=== PATIENT | male | born 1945 | race Asian ===

== ENCOUNTER 2020-01-20 17:37 | Inpatient (IN) | payer MEDICARE ==
[~2020-01-20] VITALS: Ht 175.3 cm; Wt 72.3 kg
[2020-01-20] MEDS ORDERED: LOSA50TA39 PO (17:57)
[2020-01-20] MEDS ORDERED: ASPI-1169 PO (17:57)
[2020-01-20] MEDS ORDERED: PARO30TA4 PO (17:57)
[2020-01-20] MEDS ORDERED: SENN-261 PO (17:57)
[2020-01-20] MEDS ORDERED: LORA-259 PO (17:57)
[2020-01-20] MEDS ORDERED: LORA10TA7 PO (17:57)
[2020-01-20] MEDS ORDERED: GABA-534 PO (17:57)
[2020-01-20] MEDS ORDERED: AMLO5TAB9 PO (17:57)
[2020-01-20] MEDS ORDERED: METF-834 PO (17:57)
[2020-01-20] MEDS ORDERED: RANI150T8 PO (17:57)
[2020-01-20] MEDS ORDERED: DONE5TAB34 PO (17:57)
[2020-01-20] MEDS ORDERED: BACL20TA PO (17:57)
[2020-01-20] MEDS ORDERED: LACT1CAP71 PO (17:57)
[2020-01-20] MEDS ORDERED: CYAN-51 PO (17:57)
[2020-01-20] MEDS ORDERED: MULT-1168 PO (17:57)
[2020-01-20] MEDS ORDERED: OMEG-167 PO (17:57)
[2020-01-20] MEDS ORDERED: ACET-868 PO (17:57)
[2020-01-20] MEDS ORDERED: PSYL3.4P6 PO (17:57)
--- NOTE | 2020-01-20 18:01 | NUR ---
PT BIB RA C/O SYNCOPAL EPISODE AT [facility]. PT IS AAOX1, NOT IN RESPIRATORY DISTRESS, HOOKED TO BAGGING MACHINE OPERATOR, KEPT RESTED AND COMFORTABLE, WILL CONTINUE TO MONITOR.
--- NOTE | 2020-01-20 18:20 | NUR ---
SEEN AND EXAMINED BY MIGUEL SHERWOOD
[2020-01-20] MEDS ORDERED: IV NS 0.9% 1,000 ML BAG IV ONE (18:30)
--- NOTE | 2020-01-20 19:05 | NUR ---
FIBER ANALYST AT BEDSIDE FOR XRAY.
--- NOTE | 2020-01-20 19:12 | NUR ---
REPORT GIVEN TO NOREEN EDWARDS FOR CUCA.
[2020-01-20 19:13] LABS: BASOPHILS % (AUTO) 0.6 % (0.0-2.0); EOSINOPHILS % (AUTO) 2.1 % (0.0-6.0); HEMATOCRIT 36 % (39-51); HEMOGLOBIN 12.5 g/dL (13.5-17.5); LYMPHOCYTES # (AUTO) 0.8 /CMM (0.8-4.8); LYMPHOCYTES % (AUTO) 11.1 % (20.0-44.0); MEAN CORPUSCULAR HGB CONC 35 g/dl (31.0-36.0); MEAN CORPUSCULAR VOLUME 93 fL (80-96); MONOCYTES # (AUTO) 0.5 /CMM (0.1-1.30); MONOCYTES % (AUTO) 6.9 % (2.0-12.0); NEUTROPHILS # (AUTO) 5.7 /CMM (1.8-8.9); NEUTROPHILS % (AUTO) 79.3 % (43.0-81.0); PLATELET COUNT (AUTO) 180 /CMM (150-450); RED BLOOD CELL COUNT(AUTO) 3.89 MIL/uL (4.5-6.0); WHITE BLOOD COUNT (AUTO) 7.2 K/uL (4.3-11.0)
[2020-01-20 19:24] LABS: CALCIUM, SERUM 8.3 mg/dL (8.5-10.1); CARBON DIOXIDE 25 mmol/L (21-32); CHLORIDE 105 mmol/L (98-107); CREATININE 1.2 mg/dL (0.6-1.3); GLUCOSE 110 mg/dL (74-106); POTASSIUM 4.5 mmol/L (3.5-5.1); SODIUM SERUM 139 mmol/L (136-145); UREA NITROGEN, BLOOD 17 mg/dL (7-18)
[2020-01-20 19:30] LABS: ALANINE AMINOTRANSFERASE 20 U/L (12-78); ALBUMIN 3.4 g/dL (3.4-5.0); ALKALINE PHOSPHATASE 74 U/L (46-116); ASPARTATE AMINOTRANSFERASE 19 U/L (15-37); BILIRUBIN,TOTAL 0.3 mg/dL (0.2-1.0); TOTAL PROTEIN, SERUM 6.5 g/dL (6.4-8.2)
--- NOTE | 2020-01-20 19:33 | NUR ---
Note bhavik in EDM - 01/20/20 at 1933 by HERMAN IV removed. Catheter intact and site benign. Pressure and 4x4 applied to site. No bleeding noted. Patient discharged to home in stable condition. Written and verbal after care instructions given. Patient verbalizes understanding of instruction.
[2020-01-20 19:59] LABS: APPEARANCE,URINE Clear (CLEAR); BILIRUBIN,URINE Negative (NEGATIVE); BLOOD, URINE Small Ery/uL (NEGATIVE); COLOR,URINE Yellow (YELLOW); KETONES,URINE Trace (NEGATIVE); LEUKOCYTE ESTERASE ,URINE Trace (NEGATIVE); NITRITE, URINE Negative (NEGATIVE); PROTEIN,URINE 100 mg/dl (NEGATIVE); UGLUCOSE Negative (NEGATIVE); UROBILINOGEN,URINE 0.2 EU/dL (0.2)
[2020-01-20 20:10] LABS: BACTERIA,URINE 1+ /HPF (None Seen); RBC,URINE 21-50 /HPF (0-2); SQUAMOUS EPITHELIAL CELL,UR Moderate /HPF (None Seen)
[2020-01-20 20:11] LABS: MUCUS,URINE Moderate /LPF (None Seen); URINE AMORPHOUS PHOSPHATES Moderate /HPF (None Seen)
[2020-01-20] MEDS ORDERED: CEFTRIAXONE 1GM BAG (ER ONLY) 50 ML IV ONE (20:27)
[2020-01-20] MEDS ORDERED: CEFTRIAXONE 1 G in IV D5W 50 ML IV ONE (20:30)
--- NOTE | 2020-01-20 20:52 | NUR ---
flu swab sample taken and sent to lab
--- NOTE | 2020-01-20 21:30 | NUR ---
[facility]
--- NOTE | 2020-01-20 21:31 | NUR ---
ACCEPTED BY DR LUJAN
--- NOTE | 2020-01-20 21:39 | NUR ---
TRIED CALLING FOR REPORT, NO ANSWER
--- NOTE | 2020-01-20 22:08 | NUR ---
TRIED CALLING FOR REPORT, NO ANSWER.
--- NOTE | 2020-01-20 22:26 | NUR ---
REPORT GIVEN TO SIDDHARTH SORTO FOR [facility].
[2020-01-20 23:00] VITALS: BP 121/75
--- NOTE | 2020-01-20 23:00 | NUR ---
RN OPEN NOTES RECEIVED PATIENT FROM ER VIA GURERIN. A/O X1. NO SIGNS OF DISTRESS OR DISCOMFORT. BREATHING EVEN AND UNLABORED. IV ACCESS IN R HAND, PATENT AND INTACT, NO SIGNS OF REDNESS OR INFILTRATION. ORIENTED PATIENT TO UNIT AND ROOM. BED IN LOW LOCKED POSITION WITH SIDE RAILS X2. CALL LIGHT WITHIN REACH. WILL CONTINUE TO MONITOR
[2020-01-21] MEDS ORDERED: ONDANSETRON HCL/PF 4 MG/2 ML VIAL IV PRN
[2020-01-21] MEDS ORDERED: ACETAMINOPHEN 325 MG TABLET PO PRN
[2020-01-21] MEDS ORDERED: CLONIDINE HCL 0.1 MG TABLET PO PRN
[2020-01-21] MEDS: IV D5/ 0.9% NACL 1,000 ML IV PRN (00:43)
[2020-01-21 06:29] LABS: BASOPHILS % (AUTO) 0.7 % (0.0-2.0); EOSINOPHILS % (AUTO) 3.3 % (0.0-6.0); HEMATOCRIT 36 % (39-51); HEMOGLOBIN 12.7 g/dL (13.5-17.5); LYMPHOCYTES # (AUTO) 1.6 /CMM (0.8-4.8); LYMPHOCYTES % (AUTO) 27.4 % (20.0-44.0); MEAN CORPUSCULAR HGB CONC 35 g/dl (31.0-36.0); MEAN CORPUSCULAR VOLUME 92 fL (80-96); MONOCYTES # (AUTO) 0.6 /CMM (0.1-1.30); MONOCYTES % (AUTO) 9.8 % (2.0-12.0); NEUTROPHILS # (AUTO) 3.4 /CMM (1.8-8.9); NEUTROPHILS % (AUTO) 58.8 % (43.0-81.0); PLATELET COUNT (AUTO) 178 /CMM (150-450); RED BLOOD CELL COUNT(AUTO) 3.96 MIL/uL (4.5-6.0); WHITE BLOOD COUNT (AUTO) 5.7 K/uL (4.3-11.0)
[2020-01-21 06:47] LABS: CALCIUM, SERUM 8.5 mg/dL (8.5-10.1); CREATININE 1.1 mg/dL (0.6-1.3); MAGNESIUM 1.9 mg/dL (1.8-2.4)
--- NOTE | 2020-01-21 07:31 | NUR ---
RN CLOSING NOTES PATIENT AWAKE IN BED. A/O X1. NO SIGNS OF DISTRESS OR DISCOMFORT. BREATHING EVEN AND UNLABORED. IV ACCESS IN R HAND WITH D5NS INFUSING, PATENT AND INTACT, NO SIGNS OF REDNESS OR INFILTRATION.ALL NEEDS MET. NO SIGNIFICANT CHANGES THROUGH THE NIGHT. PATIENT KEPT CLEAN DRY AND COMFORTABLE. BED IN LOW LOCKED POSITION WITH SIDE RAILS X2. CALL LIGHT WITHIN REACH. ENDORSED TO AM SHIFT FOR CUCA.
--- NOTE | 2020-01-21 07:36 | NUR ---
RN OPENING NOTE PT WAS RECEIVED IN BED AT LOWEST AND LOCKED POSITION WITH SIDE RAIL UPX2, A/O X1 BREATHING EVEN AND UNLABORED ON RA WITH NO S/S OF ANY DISTRESS AT THIS TIME, NOTED TO BE DNR, IV IS PATENT AND INTACT WITH IVF RUNNING, SAFETY PRECAUTIONS IN PLACE, CALL LIGHT IN REACH, WILL MONITOR ACCORDINGLY
[2020-01-21] MEDS: PANTOPRAZOLE 40 MG VIAL IV SCH (07:50)
[2020-01-21 08:00] VITALS: BP 138/75
[2020-01-21] MEDS ORDERED: LORATADINE 10 MG TABLET PO PRN (11:00)
[2020-01-21] MEDS: MULTIVITAMINS,THERAGRAN 1 UDTAB TABLET PO SCH (12:11)
[2020-01-21] MEDS: CYANOCOBALAMIN 500 MCG TABLET PO SCH (12:12)
[2020-01-21] MEDS: BACLOFEN (10 MG) 10 MG TABLET PO SCH ×2 (12:12→17:11)
[2020-01-21] MEDS: METFORMIN XR 500 MG TAB.SR.24H PO SCH (12:13)
[2020-01-21] MEDS: PSYLLIUM SEED 1 PKT PACKET PO SCH (12:13)
[2020-01-21] MEDS: PAROXETINE HCL 20 MG TABLET PO SCH (12:13)
[2020-01-21 16:00] VITALS: BP 169/82
[2020-01-21] MEDS ORDERED: ACETAMINOPHEN 325 MG TABLET PO SCH (17:00)
[2020-01-21] MEDS ORDERED: FATTY ACIDS PO SCH (17:00)
[2020-01-21] MEDS ORDERED: FISH OIL PO SCH (17:00)
[2020-01-21] MEDS ORDERED: OMEGA PO SCH (17:00)
[2020-01-21] MEDS: LORAZEPAM 1 MG TABLET PO SCH (17:11)
[2020-01-21] MEDS ORDERED: SENNOSIDES 8.6 MG TABLET PO SCH (18:00)
[2020-01-21] MEDS ORDERED: DONEPEZIL 5 MG TABLET PO SCH (18:00)
[2020-01-21] MEDS ORDERED: ASPIRIN 81 MG TAB.CHEW PO SCH (18:00)
[2020-01-21] MEDS ORDERED: LOSARTAN POTASSIUM 50 MG TABLET PO SCH (18:00)
--- NOTE | 2020-01-21 18:51 | NUR ---
RN CLOSING NOTE PT IN BED AT LOWEST AND LOCKED POSITION WITH SIDE RAIL UPX2, A/O X1 BREATHING EVEN AND UNLABORED ON RA WITH NO S/S OF ANY DISTRESS AT THIS TIME, IV IS PATENT AND INTACT WITH IVF RUNNING, SAFETY PRECAUTIONS IN PLACE, CALL LIGHT IN REACH, ALL NEEDS ATTENDED TO, WILL ENDORSE TO NIGHT RN FOR CUCA.
--- NOTE | 2020-01-21 19:50 | NUR ---
MS RN NOTE: PATIENT RESTING IN BED, NO ACUTE DISTRESS NOTED. BREATHING EVEN AND UNLABORED, NO SOB NOTED. IV TO RIGHT HAND IN PLACE, INFUSING D5NS 75ML/HR. BED LOCKED AND IN LOWEST POSITION, CALL LIGHT IN REACH. WILL CONTINUE TO MONITOR.
[2020-01-21 20:00] VITALS: BP 111/65
[2020-01-21] MEDS ORDERED: CEFTRIAXONE 2 G in IV D5W 100 ML IV SCH (20:00)
[2020-01-21] MEDS ORDERED: GABAPENTIN 300 MG CAPSULE PO SCH (22:00)
--- NOTE | 2020-01-22 03:30 | NUR ---
MS RN NOTE: PATIENT SLEEPING IN BED, NO ACUTE DISTRESS NOTED. BREATHING EVEN AND UNLABORED, NO SOB NOTED. IV TO RIGHT HAND IN PLACE, INFUSING D5NS 75ML/HR. BED LOCKED AND IN LOWEST POSITION, CALL LIGHT IN REACH. WILL CONTINUE TO MONITOR.
[2020-01-22] MEDS: IV D5/ 0.9% NACL 1,000 ML IV PRN (05:09)
--- NOTE | 2020-01-22 06:30 | NUR ---
MS RN NOTE: PATIENT RESTING IN BED, NO ACUTE DISTRESS NOTED. BREATHING EVEN AND UNLABORED, NO SOB NOTED. IV TO RIGHT HAND IN PLACE, INFUSING D5NS 75ML/HR. BED LOCKED AND IN LOWEST POSITION, CALL LIGHT IN REACH. WILL ENDORSE TO DAY NURSE TO CONTINUE WITH PLAN OF CARE.
--- NOTE | 2020-01-22 07:15 | NUR ---
RN OPENING NOTES PATIENT RESTING IN BED, RESPONSIVE TO VERBAL AND TACTILE STIMULI. NO ACUTE DISTRESS NOTED. BREATHING EVEN AND UNLABORED, NO SOB NOTED. IV TO RIGHT HAND IN PLACE, NO REDNESS, NO INFILTRATION. KEPT PATIENT SAFE AND COMFORTABLE. BED LOCKED AND IN LOWEST POSITION, SEMIFOWLERS, CALL LIGHT IN REACH. WILL CONTINUE TO MONITOR ACCORDINGLY..
[2020-01-22 08:00] VITALS: BP 139/89
[2020-01-22] MEDS: PANTOPRAZOLE 40 MG VIAL IV SCH (08:58)
[2020-01-22] MEDS: PSYLLIUM SEED 1 PKT PACKET PO SCH (08:59)
[2020-01-22] MEDS: METFORMIN XR 500 MG TAB.SR.24H PO SCH (09:00)
[2020-01-22] MEDS: BACLOFEN (10 MG) 10 MG TABLET PO SCH ×2 (09:00→13:21)
[2020-01-22] MEDS: MULTIVITAMINS,THERAGRAN 1 UDTAB TABLET PO SCH (09:00)
[2020-01-22] MEDS ORDERED: LACTOBACILLUS RHAMNOSUS GG 1 EACH CAP.SPRINK PO SCH (09:00)
[2020-01-22] MEDS ORDERED: AMLODIPINE BESYLATE 5 MG TABLET PO SCH (09:00)
[2020-01-22 09:01] VITALS: BP 139/89
[2020-01-22] MEDS: PAROXETINE HCL 20 MG TABLET PO SCH (09:01)
[2020-01-22] MEDS: CYANOCOBALAMIN 500 MCG TABLET PO SCH (09:01)
[2020-01-22] MEDS: LORAZEPAM 1 MG TABLET PO SCH (09:02)
[2020-01-22] MEDS ORDERED: CEPH-570 PO (12:31)
--- NOTE | 2020-01-22 16:04 | NUR ---
DISCHARGED PATIENT IN STABLE CONDITION PICKED UP BY BIRGIT(SEJAL FITNESS MANAGER) ACCOMPANIED BY LISETH ALDANA. DC INSTRUCTIONS GIVEN, VERBALIZED UNDERSTANDING, EDUCATIONAL MATERIAL GIVEN WELL. PRESCRIPTION HANDED TO BIRGIT, BELONGINGS RETURN WELL. IV ACCESS REMOVED, TIP INTACT. REMOVED NAME BAND.
== END 2020-01-22 16:15 | DRG 690 ==
LOC: ER 17:40 → MEDSG2 21:38
PROVIDERS: ADMIT Legal Medicine; ATTEND Legal Medicine
DX: N39.0 Urinary tract infection, site not specified (principal); G82.20 Paraplegia, unspecified; F03.90 Unspecified dementia, unspecified severity, without behavioral disturbance, psychotic disturbance, mood disturbance, and anxiety; E11.9 Type 2 diabetes mellitus without complications; I10 Essential (primary) hypertension; Z79.82 Long term (current) use of aspirin; Z79.84 Long term (current) use of oral hypoglycemic drugs; N40.0 Benign prostatic hyperplasia without lower urinary tract symptoms
CPT/HCPCS: 36415; 70450-TC; 71045-TC; 80048-TC; 80076-TC; 81000-TC; 82962-TC; 83605-TC; 83735-TC; 84484-TC; 85025-TC; 85730-TC; 87040-TC; 87081-TC; 87086-TC; C9113; G0378; J0696; J7030; J7042; J7060

== ENCOUNTER 2020-03-16 13:01 | Inpatient (IN) | payer MEDICARE ==
[~2020-03-16] VITALS: Ht 175.3 cm; Wt 65.3 kg
[~2020-03-16 13:01] MED LIST: ACET-868 PO; AMLO5TAB9 PO; ASPI-1169 PO; BACL20TA PO; CYAN-51 PO; DONE5TAB34 PO; GABA-534 PO; LACT1CAP71 PO; LORA-259 PO; LORA10TA7 PO; LOSA50TA39 PO; METF-834 PO; MULT-1168 PO; OMEG-167 PO; PARO30TA4 PO; PSYL3.4P6 PO; RANI150T8 PO; SENN-261 PO
--- NOTE | 2020-03-16 13:10 | NUR ---
patient [facility], altered than usual. On room air, breathing evenly and unlabored. connected to the monitor and pulse ox. will continue to monitor accordingly.
[2020-03-16 13:27] LABS: BASOPHILS # (AUTO) 0.1 /CMM (0.0-0.2); BASOPHILS % (AUTO) 0.7 % (0.0-2.0); EOSINOPHILS % (AUTO) 1.5 % (0.0-6.0); HEMATOCRIT 39 % (39-51); HEMOGLOBIN 13.4 g/dL (13.5-17.5); LYMPHOCYTES # (AUTO) 1.1 /CMM (0.8-4.8); LYMPHOCYTES % (AUTO) 14.2 % (20.0-44.0); MEAN CORPUSCULAR HGB CONC 35 g/dl (31.0-36.0); MEAN CORPUSCULAR VOLUME 92 fL (80-96); MONOCYTES # (AUTO) 0.5 /CMM (0.1-1.30); MONOCYTES % (AUTO) 6.8 % (2.0-12.0); NEUTROPHILS # (AUTO) 6.1 /CMM (1.8-8.9); NEUTROPHILS % (AUTO) 76.8 % (43.0-81.0); PLATELET COUNT (AUTO) 241 /CMM (150-450); RED BLOOD CELL COUNT(AUTO) 4.24 MIL/uL (4.5-6.0)
[2020-03-16 13:33] LABS: CALCIUM, SERUM 9.3 mg/dL (8.5-10.1); CARBON DIOXIDE 28 mmol/L (21-32); CHLORIDE 101 mmol/L (98-107); CREATININE 1.3 mg/dL (0.6-1.3); GLUCOSE 144 mg/dL (74-106); POTASSIUM 4.3 mmol/L (3.5-5.1); SODIUM SERUM 138 mmol/L (136-145); UREA NITROGEN, BLOOD 18 mg/dL (7-18)
[2020-03-16] MEDS ORDERED: DONE10TA44 PO (13:47)
[2020-03-16 13:48] LABS: BILIRUBIN,URINE Negative (NEGATIVE); BLOOD, URINE Moderate Ery/uL (NEGATIVE); COLOR,URINE Yellow (YELLOW); KETONES,URINE Negative (NEGATIVE); LEUKOCYTE ESTERASE ,URINE Large (NEGATIVE); NITRITE, URINE Negative (NEGATIVE); PROTEIN,URINE 100 mg/dl (NEGATIVE); UGLUCOSE Negative (NEGATIVE); UROBILINOGEN,URINE 0.2 EU/dL (0.2)
[2020-03-16 13:49] LABS: APPEARANCE,URINE CLOUDY (CLEAR); BACTERIA,URINE 1+ /HPF (None Seen); SQUAMOUS EPITHELIAL CELL,UR Rare /HPF (None Seen)
[2020-03-16 13:51] LABS: ACETAMINOPHEN 0 ug/ml (10-30); ALANINE AMINOTRANSFERASE 36 U/L (12-78); ALBUMIN 3.6 g/dL (3.4-5.0); ALCOHOL, BLOOD < 3 mg/dL (0-0); ALKALINE PHOSPHATASE 98 U/L (46-116); ASPARTATE AMINOTRANSFERASE 23 U/L (15-37); BILIRUBIN,DIRECT 0.1 mg/dL (0.0-0.2); BILIRUBIN,TOTAL 0.3 mg/dL (0.2-1.0); SALICYLATE 1.1 mg/dL (2.8-20.0); TOTAL PROTEIN, SERUM 7.3 g/dL (6.4-8.2)
[2020-03-16 13:53] LABS: SERUM AMMONIA 10 umol/L (11-32)
[2020-03-16 13:53] LABS: WBC,URINE TOO NUMEROUS TO COUN /HPF (0-3)
--- NOTE | 2020-03-16 14:16 | NUR ---
Rom Vanessa, son, called for an update.
[2020-03-16] MEDS ORDERED: CEFTRIAXONE 1GM BAG (ER ONLY) 1 GM/50 ML PIGGYBACK IV ONE (15:00)
[2020-03-16] MEDS ORDERED: CEFTRIAXONE 1GM BAG (ER ONLY) 50 ML IV ONE (15:04)
--- NOTE | 2020-03-16 16:07 | NUR ---
report given to Cee SORTO for moraima.
[2020-03-16] MEDS ORDERED: ACETAMINOPHEN 325 MG TABLET PO SCH (17:00)
[2020-03-16] MEDS ORDERED: Medication Not On Formulary EA (Omega-3 Fatty Acids/Fish Oil (Fish Oil 1,000 Mg Softgel) PO SCH (17:00)
[2020-03-16] MEDS ORDERED: LORATADINE 10 MG TABLET PO PRN (17:00)
[2020-03-16] MEDS ORDERED: LORAZEPAM 1 MG TABLET PO PRN (17:00)
[2020-03-16] MEDS ORDERED: ACETAMINOPHEN 325 MG TABLET PO PRN (17:30)
[2020-03-16] MEDS ORDERED: IV D5/ 0.9% NACL 1,000 ML IV PRN (17:30)
[2020-03-16] MEDS ORDERED: ONDANSETRON HCL/PF 4 MG/2 ML VIAL IV PRN (17:30)
--- NOTE | 2020-03-16 17:40 | NUR ---
report given to [place] RN for moraima
--- NOTE | 2020-03-16 18:07 | NUR ---
wheeled patient via gurney accompanied by RN and emt in no distress RN at bedside to assume care
--- NOTE | 2020-03-16 18:15 | NUR ---
TELE/RN NOTE THE PATIENT IS RECEIVED ON A GURNEY. ASSISTED TO BED. THE PATIENT ALERT AND ORIENTED X1. BLOOD PRESSURE 115/59, PULSE 85, R 18, T 98.7. NO MANIFESTATION OF DISTRESS NOTED. OXYGEN SATURATION IS ROOM AIR IS AT 99%. WEIGHT 155.5 LB. WILL ENDORSE TO CLOSED CIRCUIT SCREEN WATCHER.
[2020-03-16] MEDS: PSYLLIUM SEED 1 PKT PACKET PO SCH (19:08)
[2020-03-16] MEDS: LOSARTAN POTASSIUM 50 MG TABLET PO SCH (19:08)
[2020-03-16] MEDS: BACLOFEN (10 MG) 10 MG TABLET PO SCH (19:09)
[2020-03-16] MEDS: ASPIRIN 81 MG TAB.CHEW PO SCH (19:09)
[2020-03-16] MEDS: PANTOPRAZOLE 40 MG VIAL IV SCH (19:09)
[2020-03-16] MEDS: SENNOSIDES 8.6 MG TABLET PO SCH (19:09)
--- NOTE | 2020-03-16 19:30 | NUR ---
RN OPENING NOTES: Received pt resting in bed A&Ox1, confused. On isolation for R/O Covid. On RA, O2 sat WNL. No respiratory distress or SOB noted. On tele monitor reading SR. IV sites on LW #20 and RH #18 patent and flushing. Dressings c/d/i. No pain noted at this time. Pt admitted at end of morning shift. Will complete all admission documentation. Safety measures in place. Will continue to monitor.
[2020-03-16 20:00] VITALS: BP 119/59
[2020-03-16] MEDS ORDERED: ENOXAPARIN SODIUM 40 MG/0.4 ML DISP.SYRIN SQ SCH (21:00)
[2020-03-16] MEDS ORDERED: GABAPENTIN 300 MG CAPSULE PO SCH (22:00)
[2020-03-17] VITALS: BP 120/64
[2020-03-17 04:00] VITALS: BP 133/64
--- NOTE | 2020-03-17 06:35 | NUR ---
RN CLOSING NOTES: Pt resting in bed. On isolation for R/O Covid. On tele monitor reading SR. No SOB or respiratory distress noted during shift. Stable on RA. IV sites on LW and RH patent and flushing. Dressings c/d/i. D5NS running at 75cc/hr. Tolerating well. No infiltration noted. All meds given as ordered. Safety measures in place. Will endorse to AM nurse for CUCA.
[2020-03-17 06:36] LABS: BASOPHILS % (AUTO) 0.4 % (0.0-2.0); EOSINOPHILS % (AUTO) 1.7 % (0.0-6.0); HEMATOCRIT 38 % (39-51); LYMPHOCYTES # (AUTO) 1.8 /CMM (0.8-4.8); LYMPHOCYTES % (AUTO) 20.7 % (20.0-44.0); MEAN CORPUSCULAR HGB CONC 34 g/dl (31.0-36.0); MEAN CORPUSCULAR VOLUME 91 fL (80-96); MONOCYTES # (AUTO) 0.7 /CMM (0.1-1.30); MONOCYTES % (AUTO) 8.7 % (2.0-12.0); NEUTROPHILS # (AUTO) 5.8 /CMM (1.8-8.9); NEUTROPHILS % (AUTO) 68.5 % (43.0-81.0); PLATELET COUNT (AUTO) 225 /CMM (150-450); RED BLOOD CELL COUNT(AUTO) 4.15 MIL/uL (4.5-6.0); WHITE BLOOD COUNT (AUTO) 8.5 K/uL (4.3-11.0)
[2020-03-17 07:06] LABS: ALBUMIN 3.5 g/dL (3.4-5.0); BILIRUBIN,TOTAL 0.4 mg/dL (0.2-1.0); CALCIUM, SERUM 9.2 mg/dL (8.5-10.1); CREATININE 1.3 mg/dL (0.6-1.3); MAGNESIUM 2.1 mg/dL (1.8-2.4); PHOSPHORUS 3.7 mg/dL (2.5-4.9); POTASSIUM 4.2 mmol/L (3.5-5.1); TOTAL PROTEIN, SERUM 7.1 g/dL (6.4-8.2)
--- NOTE | 2020-03-17 07:45 | NUR ---
RN NOTE Received patient asleep in bed. Appears calm and relaxed. No signs of distress. On RA tolerating well. AO x1 mumbles when spoken to. Patient has L wrist IV running D5NS @ 75cc/hr no signs of infiltration and R hand saline lock. No signs of pain or discomfort. Safety measure implemented. Call light within reach. Siderails up x2. Bed locked and on lowest position. Will cont to monitor.
[2020-03-17 08:00] VITALS: BP 124/67
[2020-03-17] MEDS: PSYLLIUM SEED 1 PKT PACKET PO SCH ×2 (08:46→16:33)
[2020-03-17] MEDS: BACLOFEN (10 MG) 10 MG TABLET PO SCH ×3 (08:47→16:33)
[2020-03-17] MEDS: PANTOPRAZOLE 40 MG VIAL IV SCH (08:47)
[2020-03-17] MEDS ORDERED: MULTIVITAMIN/LUTEIN/MINERALS 1 TAB PO SCH (09:00)
[2020-03-17] MEDS ORDERED: LACTOBACILLUS RHAMNOSUS GG 1 EACH CAP.SPRINK PO SCH (09:00)
[2020-03-17] MEDS ORDERED: CYANOCOBALAMIN 500 MCG TABLET PO SCH (09:00)
[2020-03-17] MEDS ORDERED: AMLODIPINE BESYLATE 5 MG TABLET PO SCH (09:00)
[2020-03-17] MEDS ORDERED: PAROXETINE HCL 10 MG TABLET PO SCH (09:00)
[2020-03-17] MEDS ORDERED: METFORMIN XR 500 MG TAB.SR.24H PO SCH (09:00)
[2020-03-17] MEDS ORDERED: DONEPEZIL 5 MG TABLET PO SCH (09:00)
--- NOTE | 2020-03-17 11:42 | NUR ---
RN NOTE Received call from [facility] wants to know if patient will be discharged. Inf I will follow up with the doctor. They also want to have the 3 pages of physicians report original copy back to them when patient comes back to their facility,. Will endorse.
[2020-03-17 12:00] VITALS: BP 119/61
[2020-03-17] MEDS ORDERED: CIPR-262 PO (12:44)
--- NOTE | 2020-03-17 13:00 | NUR ---
RN NOTE Dr Richardson gave discharge order. Called family and Henri to inform spanish moss picker time is around 5pm.
[2020-03-17] MEDS ORDERED: CEFTRIAXONE 1 G in IV D5W 50 ML IV SCH (15:00)
[2020-03-17 16:00] VITALS: BP 134/72
[2020-03-17 18:00] VITALS: BP 134/72
[2020-03-17] MEDS: ASPIRIN 81 MG TAB.CHEW PO SCH (18:00)
[2020-03-17] MEDS: SENNOSIDES 8.6 MG TABLET PO SCH (18:00)
[2020-03-17] MEDS: LOSARTAN POTASSIUM 50 MG TABLET PO SCH (18:00)
--- NOTE | 2020-03-17 18:41 | NUR ---
RN CLOSING NOTE Patient in bed asleep no signs of distress. Prepared discharged papers and gave report to Henri. Ambulance will be here in 30mins. All due meds given. VS within normal limits. No co pain or discomfort. Safety measure implemented. Call light within reach. Siderails up x2. Bed locked and on lowest position. Will endorse to police shift commander nurse for moraima.
--- NOTE | 2020-03-17 20:10 | NUR ---
RN NOTES PT. DISCHARGE TO THE SNF VIA AMBULANCE, PT. TRANSFERRED ON STABLE CONDITION
== END 2020-03-17 20:10 | DRG 871 ==
LOC: ER 13:07 → TELE 15:58 → TELE1 17:14
PROVIDERS: ADMIT Legal Medicine; ATTEND Legal Medicine
DX: A41.9 Sepsis, unspecified organism (principal); R53.2 Functional quadriplegia; G93.41 Metabolic encephalopathy; N39.0 Urinary tract infection, site not specified; G95.89 Other specified diseases of spinal cord; R55 Syncope and collapse; I10 Essential (primary) hypertension; F03.90 Unspecified dementia, unspecified severity, without behavioral disturbance, psychotic disturbance, mood disturbance, and anxiety; E11.9 Type 2 diabetes mellitus without complications; N40.0 Benign prostatic hyperplasia without lower urinary tract symptoms; M19.90 Unspecified osteoarthritis, unspecified site; Z66 Do not resuscitate
CPT/HCPCS: 36415; 70450-TC; 71045-TC; 80048-TC; 80053-TC; 80076-TC; 80305; 81000-TC; 82140-TC; 83735-TC; 84100-TC; 84484-TC; 85025-TC; 87081-TC; 87086-TC; 87186-TC; C9113; G0378; G0480; J0696; J1650; J7042; J7060

== ENCOUNTER 2020-04-08 12:45 | Inpatient (IN) | payer MEDICARE ==
[~2020-04-08] VITALS: Ht 167.6 cm; Wt 71.7 kg
[~2020-04-08 12:45] MED LIST changes: +DONE10TA44 PO; -DONE5TAB34 PO
--- NOTE | 2020-04-08 12:51 | NUR ---
NE FROM [facility], PER EMS "MORE ALTERED THAN NORMAL." , TO ER BED 8, HOOKED TO MONITOR AND POX, CHANGED TO HOSP GOWN, WARM BLANKET PROVIDED, PLACED SURGICAL MASK, ON ISOLATION, PATIENT AAO x 0, VERBALLY RESPONSIVE , BREATHING EVEN AND UNLABORED. BILATERAL UPPER EXTREMITIES CONTRACTURES NOTED, AWAITING MD GILBERT.
--- NOTE | 2020-04-08 13:00 | NUR ---
DR PARKS AT BEDSIDE FOR EVAL
[2020-04-08 13:23] LABS: BASOPHILS % (AUTO) 0.5 % (0.0-2.0); EOSINOPHILS % (AUTO) 1.5 % (0.0-6.0); HEMATOCRIT 39 % (39-51); HEMOGLOBIN 13.6 g/dL (13.5-17.5); LYMPHOCYTES # (AUTO) 0.9 /CMM (0.8-4.8); LYMPHOCYTES % (AUTO) 9.7 % (20.0-44.0); MEAN CORPUSCULAR HGB CONC 35 g/dl (31.0-36.0); MEAN CORPUSCULAR VOLUME 92 fL (80-96); MONOCYTES # (AUTO) 0.7 /CMM (0.1-1.30); MONOCYTES % (AUTO) 7.4 % (2.0-12.0); NEUTROPHILS # (AUTO) 7.8 /CMM (1.8-8.9); NEUTROPHILS % (AUTO) 80.9 % (43.0-81.0); PLATELET COUNT (AUTO) 242 /CMM (150-450); RED BLOOD CELL COUNT(AUTO) 4.26 MIL/uL (4.5-6.0); WHITE BLOOD COUNT (AUTO) 9.7 K/uL (4.3-11.0)
[2020-04-08 13:31] LABS: CALCIUM, SERUM 9.2 mg/dL (8.5-10.1); CARBON DIOXIDE 28 mmol/L (21-32); CHLORIDE 101 mmol/L (98-107); CREATININE 1.6 mg/dL (0.6-1.3); GLUCOSE 157 mg/dL (74-106); POTASSIUM 4.4 mmol/L (3.5-5.1); SODIUM SERUM 138 mmol/L (136-145); UREA NITROGEN, BLOOD 13 mg/dL (7-18)
[2020-04-08 13:47] LABS: ALANINE AMINOTRANSFERASE 30 U/L (12-78); ALBUMIN 3.7 g/dL (3.4-5.0); ALKALINE PHOSPHATASE 100 U/L (46-116); ASPARTATE AMINOTRANSFERASE 21 U/L (15-37); B-TYPE NATRIURETIC PEPTIDE 163 PG/ML (0-125); BILIRUBIN,TOTAL 0.6 mg/dL (0.2-1.0); TOTAL PROTEIN, SERUM 7.7 g/dL (6.4-8.2)
[2020-04-08 13:52] LABS: D-DIMER 2.33 mg/L(FEU (0.17-0.50)
--- NOTE | 2020-04-08 13:58 | NUR ---
RAPID INFLUENZA AND COVID SWAB DONE, SENT TO LAB
[2020-04-08] MEDS ORDERED: MEROPENEM 1 G in IV NS 0.9% 100 ML IV ONE (14:00)
[2020-04-08] MEDS ORDERED: IV NS 0.9% 1,000 ML BAG IV ONE (14:00)
--- NOTE | 2020-04-08 14:00 | NUR ---
RECEIVED ADMITTING ORDERS FROM DR LUJAN VIA PHONE.
--- NOTE | 2020-04-08 14:07 | NUR ---
URINE SAMPLE COLLECTED VIA STRAIGHT CATHETER, SAMPLE SENT TO LAB
[2020-04-08 14:10] LABS: CREATINE KINASE, TOTAL 124 U/L (39-308); FERRITIN 354 ng/mL (8-388)
[2020-04-08 14:10] LABS: APPEARANCE,URINE CLOUDY (CLEAR); BILIRUBIN,URINE Negative (NEGATIVE); BLOOD, URINE Moderate Ery/uL (NEGATIVE); COLOR,URINE Yellow (YELLOW); KETONES,URINE Negative (NEGATIVE); LEUKOCYTE ESTERASE ,URINE Large (NEGATIVE); NITRITE, URINE Positive (NEGATIVE); PROTEIN,URINE >=300 mg/dl (NEGATIVE); UGLUCOSE Negative (NEGATIVE); UROBILINOGEN,URINE 0.2 EU/dL (0.2)
[2020-04-08 14:12] LABS: BACTERIA,URINE Many /HPF (None Seen)
[2020-04-08 14:13] LABS: SQUAMOUS EPITHELIAL CELL,UR Few /HPF (None Seen)
[2020-04-08 14:14] LABS: WBC,URINE TOO NUMEROUS TO COUN /HPF (0-3)
--- NOTE | 2020-04-08 14:15 | NUR ---
REPORT GIVEN TO YASIR SORTO OF TELE UNIT
[2020-04-08 14:24] LABS: C-REACTIVE PROTEIN 6.1 mg/dL (0.0-0.9)
[2020-04-08] MEDS ORDERED: LORATADINE 10 MG TABLET PO PRN (14:30)
--- NOTE | 2020-04-08 15:00 | NUR ---
Patient admitted from ER report by Sawyer/NOREEN and accompanied by staff with diaz. Denies pain or any discomfort. Pt in stable condition.
[2020-04-08] MEDS: LORAZEPAM 1 MG TABLET PO SCH (16:55)
[2020-04-08] MEDS: ACETAMINOPHEN 325 MG TABLET PO SCH (16:55)
[2020-04-08] MEDS: BLOOD SUGAR DIAGNOSTIC 1 EACH STRIP IN SCH ×2 (16:56→21:10)
[2020-04-08] MEDS ORDERED: Medication Not On Formulary EA (Omega-3 Fatty Acids/Fish Oil (Fish Oil 1,000 Mg Softgel) PO SCH (17:00)
[2020-04-08] MEDS ORDERED: ACETAMINOPHEN 325 MG TABLET PO PRN (17:00)
[2020-04-08] MEDS ORDERED: DEXTROSE 50%-WATER 50 ML DISP.SYRIN IV PRN (17:00)
[2020-04-08] MEDS ORDERED: IV D5/ 0.9% NACL 1,000 ML IV PRN (17:00)
[2020-04-08] MEDS ORDERED: LOSARTAN POTASSIUM 50 MG TABLET PO SCH (17:00)
[2020-04-08 17:19] LABS: BILIRUBIN,DIRECT 0.1 mg/dL (0.0-0.2)
--- NOTE | 2020-04-08 18:30 | NUR ---
Tele/RN Closing note Patient in bed, comfortably. Does no appears pain or discomfort, skin is warm to touch, kept clean/dry, given skin care and repositioning during day time. Respiratory even and unlabored O2sat 99% with room air. Lactic acid decreased 1.5 this afternoon. Kept low position of the bed with lock wheel and elevated head of bed for secure airway. Call light within reach, will continue to endorse nightclub manager.
[2020-04-08 20:00] VITALS: BP 130/66
[2020-04-08] MEDS: BACLOFEN (10 MG) 10 MG TABLET PO SCH (20:57)
[2020-04-08] MEDS: SENNOSIDES 8.6 MG TABLET PO SCH (20:57)
[2020-04-08] MEDS: ASPIRIN 81 MG TAB.CHEW PO SCH (20:57)
[2020-04-08] MEDS: GABAPENTIN 300 MG CAPSULE PO SCH (20:57)
[2020-04-08] MEDS ORDERED: FAMOTIDINE (20 MG) 20 MG TABLET PO SCH (21:00)
[2020-04-08] MEDS: DONEPEZIL 5 MG TABLET PO SCH (21:10)
[2020-04-08] MEDS: INSULIN REGULAR, HUMAN 100 UNIT/ML 3 ML VIAL SQ PRN (21:27)
--- NOTE | 2020-04-08 22:50 | NUR ---
TECHNICAL FELLOW NOTES RECEIVED PATIENT IN BED WATCHING TV. BREATHING NORMAL NO SOB NOTED. NO S/S OF ACUTE DISTRESS NOTED. SKIN WARM AND DRY TO TOUCH. ON ROOM AIR SATURATING 98%. IV SITE RT HAND INTACT PATENT FLUSHED WELL. ABD SOFT AND NON DISTENDED. SKIN WARM AND DRY TO TOUCH. ALL SAFETY MEASURES IN PLACE, BED IN LOW AND LOCKED POSITION. CALL LIGHT WITHIN REACH. SITTER AT BED SIDE. WILL CONT TO MONITOR. Addendum: 04/08/20 at 2255 by ANUSHKA ANTOINE RN ERROR IN CHARTING- PATIENT DOES NOT HAVE ANY SITTER.
[2020-04-09] VITALS: BP 140/72
[2020-04-09] MEDS: MEROPENEM 1 G in IV NS 0.9% 100 ML IV SCH ×2 (00:09→12:23)
[2020-04-09 04:00] VITALS: BP 146/64
[2020-04-09] MEDS: BACLOFEN (10 MG) 10 MG TABLET PO SCH ×3 (04:24→21:58)
--- NOTE | 2020-04-09 06:12 | NUR ---
RN NOTES PATIENT SLEPT WELL AT NIGHT. BREATHING NORMAL NO SOB NOTED. NO S/S OF ACUTE DISTRESS NOTED. ROUTINE MEDICATIONS WERE GIVEN ORDERED TOLERATED WELL. IV SITE INTACT PATIENT. VITAL SIGNS REMAINED WNL. KEPT CLEAN AND COMFORTABLE. ALL NEEDS ARE ATTENDED. ALL SAFETY MEASURES IN PLACE, BED IN LOW AND LOCKED POSITION. CALL LIGHT WITHIN REACH. WILL ENDORSE TO AM NURSE FOR CUCA.
[2020-04-09 08:00] VITALS: BP 152/72
--- NOTE | 2020-04-09 08:00 | NUR ---
BALLISTIC EXPERT OPENING NOTES RECEIVED PATIENT IN BED ASLEEP BUT AROUSABLE. PT IS AOX1-2. NO CARDIAC OR RESPIRATORY DISTRESS NOTED. NO SOB NOTED. SATURATING WELL ON ROOM AIR. BREATHING EVEN AND UNLABORED. PT IS AFEBRILE AT THIS TIME. PT CURRENTLY BEING ASSISTED FED, BEING ASSISTED FOR BREAKFAST. GOOD PO INTAKE NOTED. IV SITE NOTED ON RT HAND. INTACT PATENT FLUSHED WELL. IV FLUIDS REPLACED THIS AM. NS RUNNING AT 75ML/HR. TOLERATING IV FLUIDS WELL. SAFETY MEASURES IN PLACE, BED IN LOW AND LOCKED POSITION. SIDE RAILS UP X2. CALL LIGHT WITHIN REACH. WILL CONT TO MONITOR.
[2020-04-09] MEDS: BLOOD SUGAR DIAGNOSTIC 1 EACH STRIP IN SCH ×4 (08:21→21:59)
[2020-04-09] MEDS: PANTOPRAZOLE 40 MG VIAL IV SCH (08:22)
[2020-04-09] MEDS: CYANOCOBALAMIN 500 MCG TABLET PO SCH (08:22)
[2020-04-09] MEDS: AMLODIPINE BESYLATE 5 MG TABLET PO SCH (08:22)
[2020-04-09] MEDS: MULTIPLE VIT (LYCOPENE/FA/MV,CA,IRON,MIN/LUT)1 TAB PO SCH (08:22)
[2020-04-09] MEDS: PAROXETINE HCL 20 MG TABLET PO SCH (08:22)
[2020-04-09] MEDS: LORAZEPAM 1 MG TABLET PO SCH ×2 (08:23→17:09)
[2020-04-09] MEDS: PSYLLIUM SEED 1 PKT PACKET PO SCH (08:23)
[2020-04-09] MEDS: LACTOBACILLUS RHAMNOSUS GG 1 EACH CAP.SPRINK PO SCH (08:23)
[2020-04-09] MEDS: ACETAMINOPHEN 325 MG TABLET PO SCH ×2 (08:23→17:09)
--- NOTE | 2020-04-09 08:30 | NUR ---
IV FLUIDS IV FLUIDS CHANGED BY MD. FIGUEROA D5NS AND CHANGED TO NS RUNNING @ 75ML/HR. IV BAG CHANGED. ORDER NOTED AND CARRIED OUT.
[2020-04-09] MEDS ORDERED: METFORMIN XR 500 MG TAB.SR.24H PO SCH (09:00)
[2020-04-09] MEDS: IV NS 0.9% 1,000 ML IV PRN ×2 (09:27→22:14)
[2020-04-09 12:00] VITALS: BP 142/69
[2020-04-09] MEDS: INSULIN REGULAR, HUMAN 100 UNIT/ML 3 ML VIAL SQ PRN ×2 (12:37→22:00)
[2020-04-09 15:12] LABS: BASOPHILS % (AUTO) 0.1 % (0.0-2.0); EOSINOPHILS % (AUTO) 1.6 % (0.0-6.0); HEMATOCRIT 35 % (39-51); HEMOGLOBIN 12.2 g/dL (13.5-17.5); LYMPHOCYTES # (AUTO) 0.9 /CMM (0.8-4.8); LYMPHOCYTES % (AUTO) 17.6 % (20.0-44.0); MEAN CORPUSCULAR HGB CONC 35 g/dl (31.0-36.0); MEAN CORPUSCULAR VOLUME 91 fL (80-96); MONOCYTES # (AUTO) 0.4 /CMM (0.1-1.30); MONOCYTES % (AUTO) 7.8 % (2.0-12.0); NEUTROPHILS # (AUTO) 3.7 /CMM (1.8-8.9); NEUTROPHILS % (AUTO) 72.9 % (43.0-81.0); PLATELET COUNT (AUTO) 201 /CMM (150-450); RED BLOOD CELL COUNT(AUTO) 3.84 MIL/uL (4.5-6.0)
[2020-04-09 15:46] LABS: CREATININE 1.2 mg/dL (0.6-1.3)
[2020-04-09 15:51] LABS: EOSINOPHILS % (MANUAL) 3 % (0-4); LYMPHOCYTES % (MANUAL) 13 % (16-48); MONOCYTES % (MANUAL) 11 % (0-11.0); NEUTROPHILS % (MANUAL) 73 (42-76)
[2020-04-09 16:00] VITALS: BP 135/74
[2020-04-09 16:00] LABS: POTASSIUM 4.5 mmol/L (3.5-5.1)
--- NOTE | 2020-04-09 18:13 | NUR ---
COLLATOR HAND CLOSING NOTES PATIENT IN BED AWAKE WATCHING TV. PT IS AOX1-2. ABLE TO ANSWER SOME YES OR NO QUESTIONS. ABLE TO FOLLOW SIMPLE COMMANDS. NO CARDIAC OR RESPIRATORY DISTRESS NOTED. NO SOB NOTED. SATURATING WELL ON ROOM AIR. BREATHING EVEN AND UNLABORED. PT IS AFEBRILE AT THIS TIME. NO FEVERS NOTED THROUGHOUT THE SHIFT. STILL AWAITING FOR PENDING COVID RESULTS. PT HAS GOOD PO INTAKE NOTED. IV SITE NOTED ON RT HAND. INTACT PATENT FLUSHED WELL. IV FLUIDS REPLACED THIS AM. NS RUNNING AT 75ML/HR. TOLERATING IV FLUIDS WELL. SAFETY MEASURES IN PLACE, BED IN LOW AND LOCKED POSITION. SIDE RAILS UP X2. CALL LIGHT WITHIN REACH. WILL CONT TO MONITOR.
[2020-04-09 20:00] VITALS: BP 138/66
[2020-04-09] MEDS: ASPIRIN 81 MG TAB.CHEW PO SCH (21:58)
[2020-04-09] MEDS: SENNOSIDES 8.6 MG TABLET PO SCH (21:58)
[2020-04-09] MEDS: DONEPEZIL 5 MG TABLET PO SCH (21:58)
[2020-04-09] MEDS: GABAPENTIN 300 MG CAPSULE PO SCH (21:58)
[2020-04-10 00:20] VITALS: BP 136/79
[2020-04-10] MEDS: MEROPENEM 1 G in IV NS 0.9% 100 ML IV SCH ×2 (00:44→11:47)
[2020-04-10 04:00] VITALS: BP 151/71
[2020-04-10] MEDS: BLOOD SUGAR DIAGNOSTIC 1 EACH STRIP IN SCH ×2 (06:32→12:05)
[2020-04-10] MEDS: BACLOFEN (10 MG) 10 MG TABLET PO SCH ×2 (06:32→13:20)
[2020-04-10] MEDS: INSULIN REGULAR, HUMAN 100 UNIT/ML 3 ML VIAL SQ PRN (06:34)
--- NOTE | 2020-04-10 06:36 | NUR ---
COLLEGE FOOTBALL COACH CLOSING NOTES PATIENT IN BED AWAKENS TO VOICE. PT IS AOX2. ABLE TO ANSWER YES OR NO QUESTIONS SPEAKS SOME TAJIK. ABLE TO FOLLOW SIMPLE COMMANDS. NO CARDIAC OR RESPIRATORY DISTRESS NOTED. NO SOB NOTED. SATURATING WELL ON ROOM AIR. BREATHING EVEN AND UNLABORED. STILL AWAITING FOR PENDING COVID RESULTS. PT HAS GOOD PO INTAKE NEEDS ASSISTANCE WITH EATING PATIENT QUADRIPLEGIC.. IV SITE NOTED ON RT HAND. INTACT PATENT FLUSHED WELL. NS RUNNING AT 75ML/HR. TOLERATING IV FLUIDS WELL. SAFETY MEASURES IN PLACE, BED IN LOW AND LOCKED POSITION. SIDE RAILS UP X2. CALL LIGHT WITHIN REACH.
[2020-04-10 06:37] LABS: BASOPHILS % (AUTO) 0.7 % (0.0-2.0); HEMATOCRIT 35 % (39-51); HEMOGLOBIN 12.1 g/dL (13.5-17.5); LYMPHOCYTES # (AUTO) 1.3 /CMM (0.8-4.8); LYMPHOCYTES % (AUTO) 23.6 % (20.0-44.0); MEAN CORPUSCULAR HGB CONC 35 g/dl (31.0-36.0); MEAN CORPUSCULAR VOLUME 92 fL (80-96); MONOCYTES # (AUTO) 0.6 /CMM (0.1-1.30); MONOCYTES % (AUTO) 11.5 % (2.0-12.0); NEUTROPHILS # (AUTO) 3.2 /CMM (1.8-8.9); NEUTROPHILS % (AUTO) 60.2 % (43.0-81.0); PLATELET COUNT (AUTO) 183 /CMM (150-450); RED BLOOD CELL COUNT(AUTO) 3.84 MIL/uL (4.5-6.0); WHITE BLOOD COUNT (AUTO) 5.3 K/uL (4.3-11.0)
[2020-04-10 06:59] LABS: ALBUMIN 3.3 g/dL (3.4-5.0); BILIRUBIN,TOTAL 0.5 mg/dL (0.2-1.0); CALCIUM, SERUM 8.7 mg/dL (8.5-10.1); CREATININE 0.9 mg/dL (0.6-1.3); MAGNESIUM 1.9 mg/dL (1.8-2.4); PHOSPHORUS 2.9 mg/dL (2.5-4.9); POTASSIUM 3.9 mmol/L (3.5-5.1)
--- NOTE | 2020-04-10 07:40 | NUR ---
MS RN OPENING NOTE PATIENT IN BED RESTING COMFORTABLY. PATIENT IN NO ACUTE DISTRESS. NO SOB NOTED. PATIENT BREATHING IS EVEN AND UNLABORED. IV RIGHT HAND 20G PATENT AND INTACT. PATIENT BED ALARM IS ON. SAFETY PRECAUTIONS IN PLACE. PATIENT BED IS LOCKED AND IN LOWEST POSITION. CALL LIGHT WITHIN REACH. WILL CONTINUE TO MONITOR.
[2020-04-10 08:00] VITALS: BP 149/85
--- NOTE | 2020-04-10 08:10 | NUR ---
MS RN OPENING NOTES RECEIVED PATIENT IN BED, AWAKE, A/O X2. PATIENT IS ON ROOM AIR; BREATHING IS EVEN AND UNLABORED. NO SOB PRESENT AT THIS TIME. PATIENT DENIES PAIN WELL. R HAND IV ACCESS PRESENT G#20 INFUSING NS AT 75 MLS/HR. NO REDNESS AROUND THE SITE, NO INFILTRATION. SAFETY PRECAUTIONS IN PLACE; BED IN LOW POSITION AND LOCKED, RAILS UP X2, CALL LIGHT WITHIN REACH. WILL CONTINUE TO MONITOR PATIENT.
--- NOTE | 2020-04-10 08:10 | NUR ---
MS RN NOTE REPORT GIVEN AND ENDORSED ALL CARE TO AV SORTO FOR CUCA.
[2020-04-10] MEDS: MULTIPLE VIT (LYCOPENE/FA/MV,CA,IRON,MIN/LUT)1 TAB PO SCH (08:20)
[2020-04-10] MEDS: PANTOPRAZOLE 40 MG VIAL IV SCH (08:20)
[2020-04-10] MEDS: LACTOBACILLUS RHAMNOSUS GG 1 EACH CAP.SPRINK PO SCH (08:20)
[2020-04-10] MEDS: LORAZEPAM 1 MG TABLET PO SCH (08:21)
[2020-04-10] MEDS: CYANOCOBALAMIN 500 MCG TABLET PO SCH (08:21)
[2020-04-10] MEDS: AMLODIPINE BESYLATE 5 MG TABLET PO SCH (08:21)
[2020-04-10] MEDS: PSYLLIUM SEED 1 PKT PACKET PO SCH (08:21)
[2020-04-10] MEDS: ACETAMINOPHEN 325 MG TABLET PO SCH (08:21)
--- NOTE | 2020-04-10 09:00 | NUR ---
DR. LUJAN PLACED DISCHARGE ORDER PER CM DR. MENDIETA NEED TO SEE PATIENT FIRST COZ COVERING TODAY.
--- NOTE | 2020-04-10 09:12 | NUR ---
dr. jin notified regarding covid negative result per dr. jin he will see pt. first and review chart.
[2020-04-10] MEDS: PAROXETINE HCL 20 MG TABLET PO SCH (09:15)
[2020-04-10] MEDS ORDERED: LEVO500T75 PO (09:49)
[2020-04-10 12:00] VITALS: BP 133/78
[2020-04-10 12:05] VITALS: BP 133/78
--- NOTE | 2020-04-10 14:50 | NUR ---
RN DISCHARGED NOTES PATIENT DISCHARGED IN STABLE CONDITION, A/O X2. V/S TAKEN, STABLE AND RECORDED. PATIENT'S IV ACCES REMOVED AND APPLIED PRESSURE DRESSINGS. SKIN IS INTACT. NAME ARM BAND REMOVED. ALL BELONGINGS CHECKED AND SIGNED. HEALTH TEACHINGS/DISCHARGED INSTRUCTIONS GIVEN AND VERBALIZED UNDERSTANDING. PATIENT LEFT UNIT VIA GURNEY WITH 2 AMBULANCE STAFF. NO SIGNS OF DISTRESS NOTED. CHARGE NURSE AWARE OF DISCHARGED.
[2020-04-11 09:06] LABS: PTH, INTACT 14 pg/mL (15-65)
[2020-04-12 09:07] LABS: *SPE ALPHA-1-GLOBULIN 0.3 g/dL (0.0-0.4); *SPE ALPHA-2-GLOBULIN 0.9 g/dL (0.4-1.0); *SPE M-SPIKE Not Observed g/dL (Not Observed); *SPEGAMMA GLOBULIN 0.8 g/dL (0.4-1.8)
== END 2020-04-10 14:54 | DRG 871 ==
LOC: ER 12:48 → MEDSG1 14:23 → TELE1 15:04 → MEDSG1 16:27
PROVIDERS: ADMIT Legal Medicine; ATTEND Legal Medicine
DX: A41.9 Sepsis, unspecified organism (principal); G93.41 Metabolic encephalopathy; R53.2 Functional quadriplegia; N17.0 Acute kidney failure with tubular necrosis; N39.0 Urinary tract infection, site not specified; I69.359 Hemiplegia and hemiparesis following cerebral infarction affecting unspecified side; I10 Essential (primary) hypertension; Z79.82 Long term (current) use of aspirin; Z87.440 Personal history of urinary (tract) infections; E11.9 Type 2 diabetes mellitus without complications; Z79.84 Long term (current) use of oral hypoglycemic drugs; F03.90 Unspecified dementia, unspecified severity, without behavioral disturbance, psychotic disturbance, mood disturbance, and anxiety; M19.90 Unspecified osteoarthritis, unspecified site; G89.29 Other chronic pain; N40.0 Benign prostatic hyperplasia without lower urinary tract symptoms; K59.00 Constipation, unspecified; I67.2 Cerebral atherosclerosis; I70.0 Atherosclerosis of aorta
CPT/HCPCS: 36415; 70450-TC; 71045-TC; 80048-TC; 80053-TC; 81000-TC; 82248-TC; 82550-TC; 82728-TC; 82962-TC; 83605-TC; 83615-TC; 83735-TC; 83880; 83970; 84100-TC; 84155; 84165; 84484-TC; 85025-TC; 85378-TC; 85385-TC; 85730-TC; 86140-TC; 87040-TC; 87081-TC; 87086-TC; 87186-TC; A4216; C9113; G0378; J1815; J2185; J7030; J7042

== ENCOUNTER 2020-05-03 09:25 | Emergency (ER) | payer MEDICARE ==
[~2020-05-03] VITALS: Ht 177.8 cm; Wt 74.8 kg
[~2020-05-03 09:25] MED LIST changes: +LEVO500T75 PO
[2020-05-03] MEDS ORDERED: IV NS 0.9% 500 ML BAG IV ONE (09:30)
--- NOTE | 2020-05-03 09:30 | NUR ---
PT SEEN AND EXAMINED BY .
--- NOTE | 2020-05-03 09:35 | NUR ---
PT BIBRA FROM [facility] C/[facility] MORE ALTERED THAN USUAL PER REPORT, PT IS AAOX0, NOT IN RESPIRATORY DISTRESS, HOOKED TO AUTOMOTIVE GLASS MECHANIC, KEPT RESTED AND COMFORTABLE, WILL CONTINUE TO MONITOR.
--- NOTE | 2020-05-03 09:40 | NUR ---
BLOOD DRAWN AND SENT TO LAB.
[2020-05-03 09:48] LABS: BASOPHILS % (AUTO) 0.3 % (0.0-2.0); EOSINOPHILS % (AUTO) 6.9 % (0.0-6.0); HEMATOCRIT 33 % (39-51); HEMOGLOBIN 11.3 g/dL (13.5-17.5); LYMPHOCYTES # (AUTO) 0.4 /CMM (0.8-4.8); LYMPHOCYTES % (AUTO) 5.9 % (20.0-44.0); MEAN CORPUSCULAR HGB CONC 35 g/dl (31.0-36.0); MEAN CORPUSCULAR VOLUME 91 fL (80-96); MONOCYTES # (AUTO) 0.7 /CMM (0.1-1.30); MONOCYTES % (AUTO) 10.7 % (2.0-12.0); NEUTROPHILS # (AUTO) 4.7 /CMM (1.8-8.9); NEUTROPHILS % (AUTO) 76.2 % (43.0-81.0); PLATELET COUNT (AUTO) 158 /CMM (150-450); RED BLOOD CELL COUNT(AUTO) 3.57 MIL/uL (4.5-6.0); WHITE BLOOD COUNT (AUTO) 6.2 K/uL (4.3-11.0)
[2020-05-03 09:58] LABS: CALCIUM, SERUM 8.6 mg/dL (8.5-10.1); CARBON DIOXIDE 29 mmol/L (21-32); CHLORIDE 100 mmol/L (98-107); CREATININE 1.3 mg/dL (0.6-1.3); GLUCOSE 176 mg/dL (74-106); POTASSIUM 4.2 mmol/L (3.5-5.1); SODIUM SERUM 135 mmol/L (136-145); UREA NITROGEN, BLOOD 18 mg/dL (7-18)
[2020-05-03 10:04] LABS: ALANINE AMINOTRANSFERASE 31 U/L (12-78); ALBUMIN 3.2 g/dL (3.4-5.0); ALCOHOL, BLOOD < 3 mg/dL (0-0); ALKALINE PHOSPHATASE 75 U/L (46-116); ASPARTATE AMINOTRANSFERASE 22 U/L (15-37); BILIRUBIN,DIRECT 0.1 mg/dL (0.0-0.2); BILIRUBIN,TOTAL 0.6 mg/dL (0.2-1.0); TOTAL PROTEIN, SERUM 6.8 g/dL (6.4-8.2)
--- NOTE | 2020-05-03 10:10 | NUR ---
URINE SPECIMEN COLLECTED AND SENT TO LAB.
--- NOTE | 2020-05-03 10:10 | NUR ---
PT IS WHEELED TO CT SCAN VIA [facility].
--- NOTE | 2020-05-03 10:16 | NUR ---
PT IS WHEELED TO CT SCAN VIA [facility].
[2020-05-03 10:19] LABS: BILIRUBIN,URINE Negative (NEGATIVE); BLOOD, URINE Small Ery/uL (NEGATIVE); COLOR,URINE Yellow (YELLOW); KETONES,URINE Negative (NEGATIVE); LEUKOCYTE ESTERASE ,URINE Large (NEGATIVE); NITRITE, URINE Negative (NEGATIVE); PH,URINE 7.5 (5.0-8.0); PROTEIN,URINE 30 mg/dl (NEGATIVE); UGLUCOSE Negative (NEGATIVE)
[2020-05-03 10:20] LABS: APPEARANCE,URINE SLIGHTLY CLOUDY (CLEAR)
[2020-05-03 10:21] LABS: SERUM AMMONIA 26 umol/L (11-32)
--- NOTE | 2020-05-03 10:21 | NUR ---
PAGED DR. LUJAN'S OFFICE. WILL CALL BACK WHEN DONE WITH PT.
[2020-05-03 10:29] LABS: BACTERIA,URINE Moderate /HPF (None Seen); SQUAMOUS EPITHELIAL CELL,UR Few /HPF (None Seen); URINE AMORPHOUS URATE Moderate /HPF (None Seen); WBC,URINE 21-50 /HPF (0-3)
[2020-05-03 10:33] LABS: THYROID STIMULATING HORMONE 1.133 uIU/mL (0.358-3.74)
[2020-05-03] MEDS ORDERED: CEFTRIAXONE 1GM BAG (ER ONLY) 1 GM/50 ML PIGGYBACK IV ONE (11:00)
[2020-05-03] MEDS ORDERED: CEFTRIAXONE 1GM BAG (ER ONLY) 50 ML IV ONE (11:01)
--- NOTE | 2020-05-03 11:16 | NUR ---
CALLED [facility] FOR [facility] TRANSPORT. ETA: 1400
--- NOTE | 2020-05-03 11:27 | NUR ---
CALLED [facility] FOR TRANSPORT TO [facility]. ETA [phone]. TRIP NUMBER [id number].
--- NOTE | 2020-05-03 11:37 | NUR ---
RECIEVED A CALL FROM [facility], CREW HAD A CALL CANCELLATION AND CAN BE HERE IN 10-15 MINUTES.
--- NOTE | 2020-05-03 12:05 | NUR ---
REPORT AND NOTIFICATION GIVEN TO RODGER SALOMON AT THE [facility] AT [facility].
--- NOTE | 2020-05-03 12:09 | NUR ---
IV removed. Catheter intact and site benign. Pressure and 4x4 applied to site. No bleeding noted.
--- NOTE | 2020-05-03 12:10 | NUR ---
AMBULANCE 226 @ BEDSIDE FOR TRANSPORT BACK TO PT'S [facility]. REPORT GIVEN. PT IS IN STABLE CONDITION. NAD NOTED
[2020-05-03 12:12] VITALS: BP 156/61
== END 2020-05-03 12:13 | disposition home or self-care (01) ==
LOC: ER 09:28
DX: N39.0 Urinary tract infection, site not specified (principal); R41.82 Altered mental status, unspecified; I10 Essential (primary) hypertension; E11.9 Type 2 diabetes mellitus without complications; Z86.73 Personal history of transient ischemic attack (TIA), and cerebral infarction without residual deficits; Z79.899 Other long term (current) drug therapy; Z79.82 Long term (current) use of aspirin
CPT/HCPCS: 36415; 70450; 71045; 80048; 80076; 80307; 81001; 82140; 83605; 84443; 84484; 85025; 85730; 87040 ×2; 87086; 93005; 96365; 99285; J0696; J7040; 81000-TC; G0480